=== PATIENT | male | born 1995 | race Caucasian/White ===

== ENCOUNTER 2017-01-29 16:46 | Inpatient (IN) | payer BC, OTHER ==
[~2017-01-29] VITALS: Ht 175.3 cm; Wt 67.1 kg
[2017-01-29 19:20] VITALS: BP 144/80
--- NOTE | 2017-01-29 19:20 | NUR ---
Pre-Assessment Pre-assessment performed in the intake department of [facility]. Pt is accompanied by his father. He is A&O x4 and ambulatory with a steady gait. Pt does not appear intoxicated and answers all questions appropriately. Vitals are B/P 144/80, HR, 95, RR 18, O2 sat 100%, T 97.9, back pain 11/09 r/t broken back 11/2015. He is 5'9" and weighs 148lb. He reports NKA. Pt reports that he is here to be treated for ETOH abuse. He last drank vodka 01/28/17 at 1400. [facility].
[2017-01-29] MEDS ORDERED: MIRALAX 17 GM POWD.PACK PO PRN (19:45)
[2017-01-29] MEDS ORDERED: ACETAMINOPHEN 325 MG TABLET PO PRN (19:45)
[2017-01-29] MEDS ORDERED: ONDANSETRON 4 MG/2 ML VIAL IM PRN (19:45)
[2017-01-29] MEDS ORDERED: THIAMINE HCL 200 MG/2 ML VIAL IM ONE (19:45)
[2017-01-29] MEDS ORDERED: MAG HYDROX/AL HYDROX/SIMETH 30 ML LIQUID UDC PO PRN (19:45)
[2017-01-29] MEDS ORDERED: LOPERAMIDE HCL 2 MG CAPSULE PO PRN ×2 (19:45)
[2017-01-29] MEDS ORDERED: LORAZEPAM 2 MG/1 ML VIAL IM PRN (19:45)
[2017-01-29] MEDS ORDERED: ONDANSETRON ODT 4 MG TAB.RAPDIS SL PRN (19:45)
[2017-01-29] MEDS ORDERED: DICYCLOMINE HCL 20 MG TABLET PO PRN (19:45)
[2017-01-29] MEDS ORDERED: IBUPROFEN 400 MG TABLET PO PRN (19:45)
[2017-01-29] MEDS ORDERED: diphenhydrAMINE 50 MG CAPSULE PO PRN (19:45)
[2017-01-29] MEDS ORDERED: MAGNESIUM HYDROXIDE 30 ML LIQUID UDC PO PRN (19:45)
[2017-01-29] MEDS ORDERED: LORAZEPAM 1 MG TABLET PO PRN (19:45)
[2017-01-29] MEDS ORDERED: CLONIDINE HCL 0.1 MG TABLET PO PRN (19:45)
[2017-01-29 20:30] VITALS: BP 142/92
[2017-01-29] MEDS: LORAZEPAM 1 MG TABLET PO PRN (20:42)
--- NOTE | 2017-01-29 20:45 | NUR ---
PRN Ativan Pt appears tense and reports feeling anxious. His face is flushed, pupils are dilated, with mild hand tremors. CIWA 8. PRN Ativan administered.
[2017-01-29] MEDS ORDERED: DULO30CA2 PO (20:46)
[2017-01-29] MEDS ORDERED: ZOLP10TA6 PO (20:46)
[2017-01-29] MEDS ORDERED: HYDR-3026 PO (20:46)
[2017-01-29] MEDS ORDERED: FLUO-119 PO (20:46)
[2017-01-29] MEDS ORDERED: [UNRECOGNIZED DRUG - CODE] TP (20:46)
[2017-01-29] MEDS ORDERED: DOXY25TA PO (20:46)
[2017-01-29] MEDS ORDERED: LISD40CA2 PO (20:46)
[2017-01-29 20:50] LABS: BASOPHILS # (AUTO) 0.1 K/uL (0.0-8.0); BASOPHILS % (AUTO) 1.1 % (0.0-2.0); EOSINOPHILS # (AUTO) 0.1 K/uL (0.0-0.7); HEMATOCRIT 43.2 % (40-50); HEMOGLOBIN 15.3 G/DL (14.0-18.0); LYMPHOCYTES # (AUTO) 1.3 K/UL (0.8-4.8); LYMPHOCYTES % (AUTO) 27.1 % (20.5-74.5); MEAN CORPUSCULAR HEMOGLOBIN 35.5 UUG (27.0-31.0); MEAN CORPUSCULAR HGB CONC 36 g/dL (32.0-37.0); MEAN CORPUSCULAR VOLUME 100.1 FL (82.0-92.0); MONOCYTES # (AUTO) 0.6 K/UL (0.1-1.30); MONOCYTES % (AUTO) 12.6 % (0-11); NEUTROPHILS # (AUTO) 2.5 K/UL (1.8-8.9); NEUTROPHILS % (AUTO) 56.2 % (31.5-64.5); PLATELET COUNT (AUTO) 181 K/UL (150-450); RED BLOOD CELL COUNT(AUTO) 4.32 MIL/UL (4.7-6.1); WHITE BLOOD COUNT (AUTO) 4.6 K/UL (4.0-11.2)
[2017-01-29] MEDS ORDERED: [UNRECOGNIZED DRUG - CODE] PO (20:50)
[2017-01-29 21:13] LABS: ETHANOL < 3 MG/DL (0-0)
[2017-01-29 21:17] LABS: ALKALINE PHOSPHATASE 94 U/L (50-136); AMYLASE 97 U/L (25-115); ASPARTATE AMINOTRANSFERASE 160 U/L (15-37); BILIRUBIN,TOTAL 0.9 mg/dL (0.2-1.0); CARBON DIOXIDE 27 mmol/L (21-32); CHLORIDE 100 mmol/L (98-107); CREATININE 0.8 mg/dL (0.6-1.3); GLUCOSE 134 mg/dL (74-106); LIPASE 105 U/L (73-393); MAGNESIUM 1.7 mg/dL (1.8-2.4); POTASSIUM 3.9 mmol/L (3.5-5.1); TOTAL PROTEIN, SERUM 7.4 g/dL (6.4-8.2); UREA NITROGEN, BLOOD 18 mg/dL (7-18)
[2017-01-29 21:26] LABS: ALANINE AMINOTRANSFERASE 239 U/L (16-63)
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
[2017-01-29 21:45] VITALS: BP 141/86
--- NOTE | 2017-01-29 21:45 | NUR ---
PRN Ativan reassessment PRN Ativan somewhat effective. He continues to feel mildly anxious and unable to relax to fall asleep. CIWA 5
[2017-01-29 21:48] LABS: *AMPHETAMINE, URINE NEGATIVE (NEGATIVE); *BARBITURATE, URINE NEGATIVE (NEGATIVE); *CANNABINOID, URINE POSITIVE (NEGATIVE); *COCCAINE, URINE NEGATIVE (NEGATIVE); *OPIATE, URINE NEGATIVE (NEGATIVE); *PHENCYCLIDINE SCREEN,URINE NEGATIVE (NEGATIVE)
[2017-01-29] MEDS: HYDROXYZINE PAMOATE 25 MG CAPSULE PO PRN (21:51)
--- NOTE | 2017-01-29 21:52 | NUR ---
PRN Motrin and Vistaril Pt reports feeling anxious and unable to relax and fall asleep. CIWA 5. He reports chronic back pain 02/09. PRN Motrin and Vistaril administered.
[2017-01-29] MEDS ORDERED: MAGNESIUM OXIDE 400 MG TABLET PO ONE (22:15)
--- NOTE | 2017-01-29 22:52 | NUR ---
PRN Motrin and Vistaril reassessment PRN Motrin and Vistaril effective. Pt is lying comfortably in bed resting with eyes closed. Respirations even and unlabored. Safety measures in place.
[2017-01-30] VITALS: BP 114/65
[2017-01-30 04:00] VITALS: BP 127/83
--- NOTE | 2017-01-30 07:00 | NUR ---
END OF SHIFT Report provided to day shift nurse. Pt is lying in bed resting. He is a 21 yo male admitted to [facility] on 01/29 for ETOH dependence. He is A&O x4 and ambulatory. NKA, full code, regular diet. Last CIWA 4. PRN Ativan, Motrin, and Vistaril administered. He drank 500 mL and slept 6 hours.
[2017-01-30] MEDS: LORAZEPAM 1 MG TABLET PO PRN (07:14)
--- NOTE | 2017-01-30 07:15 | NUR ---
START OF SHIFT NOTE: Received report from shift supervisor rn nurse. Pt is a 21 yo male admitted 01-29-17 for ETOH dependence. Pt is currently on prn meds only. Pt c/o anxiety, tremors, sweating. CIWA 8. Ativan 1mg po prn given. Pt is alert and oriented X4. Color good, skin moist. Respirations even and unlabored. Resting in bed. Safety precautions observed. Call light within reach. Will continue to monitor.
[2017-01-30 08:10] VITALS: BP 143/87
--- NOTE | 2017-01-30 08:15 | NUR ---
Pt states anxiety has lessened after Ativan prn. CIWA 5
[2017-01-30] MEDS ORDERED: TUBERCULIN,PURIF.PROT.DERIV. 5 TU/0.1 ML TEST ID ONE (09:00)
[2017-01-30] MEDS: FOLIC ACID 1 MG TABLET PO SCH (09:43)
[2017-01-30] MEDS: MULTIVITAMINS,THERAPEUTIC TABLET PO SCH (09:43)
[2017-01-30] MEDS: THIAMINE HCL 100 MG TABLET PO SCH (09:43)
--- NOTE | 2017-01-30 12:20 | NUR ---
Therapist introduced himself to client and encouraged client to attend daily groups at 11am and 3:30pm. Client stated that he is willing to attend.
[2017-01-30 12:47] VITALS: BP 147/100
[2017-01-30] MEDS ORDERED: LORAZEPAM 1 MG TABLET PO PRN ×2 (13:00)
--- NOTE | 2017-01-30 14:00 | NUR ---
Pt states "I feel good." Attending group activities.
[2017-01-30 17:04] VITALS: BP 146/98
[2017-01-30] MEDS: DULOXETINE 30 MG CAPSULE.DR PO SCH (17:15)
--- NOTE | 2017-01-30 17:18 | NUR ---
Dr. Suazo here to eveluate pt. Pt placed on Cymbalta
--- NOTE | 2017-01-30 18:47 | NUR ---
END OF SHIFT NOTE: Report given to overnight caregiver nurse. Pt is a 21 yo male admitted 01-29-17 for ETOH dependence. Pt is currently on prn meds only. Pt is alert and oriented X4. Color good, skin moist. Respirations even and unlabored. Ativan 1mg po prn given @ 0715. Vital signs have remained stable throughout shift. Last CIWA @ 1700. Safety precautions observed. Call light within reach.
[2017-01-30 20:00] VITALS: BP 92/71
--- NOTE | 2017-01-30 20:05 | NUR ---
START OF SHIFT Received report from day shift nurse. Pt attended a group meeting and returned to his room after. He is a 21 yo male admitted to [facility] on 01/29 for ETOH withdrawal. He is A&O x4 and ambulatory. NKA, full code status, and on a regular diet. He has a PMH of asthma not currently treated, broken back 11/2015, tonsillitis, anxiety, depression, OCD, ADHD, panic attacks, and insomnia. On admission he admitted to drinking vodka "6-7 shots" per day for 4 weeks and marijuana rarely. He reports "my anxiety is okay right now". He is observed to have mild hand tremors, dilated pupils, and flushed face. PRN medications available for management of withdrawal symptoms. Fall precautions in place. Bed is down with call light in reach.
[2017-01-30] MEDS: TRAZODONE 50 MG TABLET PO PRN (21:43)
[2017-01-30] MEDS: HYDROXYZINE PAMOATE 25 MG CAPSULE PO PRN (21:44)
--- NOTE | 2017-01-30 21:45 | NUR ---
PRN Vistaril and Trazodone Pt reports mild anxiety and inability to sleep. He is noted with mild tremors, dilated pupils, and flushed skin. PRN Vistaril and Trazodone administered.
--- NOTE | 2017-01-30 22:45 | NUR ---
PRN Vistaril and Trazodone reassessment PRN Vistaril and Trazodone effective. Pt is lying comfortably in bed resting with eyes closed. Respirations even and unlabored. Safety measure in place.
[2017-01-31] VITALS: BP 114/58
[2017-01-31 04:00] VITALS: BP 127/82
--- NOTE | 2017-01-31 07:18 | NUR ---
END OF SHIFT Report provided to day shift nurse. Pt is lying in bed resting. He is a 21 yo male admitted to [facility] on 01/29 for ETOH withdrawal. He is A&O x4 and ambulatory. NKA, full code status, and on a regular diet. He has a PMH of asthma not currently treated, broken back 11/2015, tonsillitis, anxiety, depression, OCD, ADHD, panic attacks, and insomnia. Upon admission he reported drinking vodka "6-7 shots" per day for 4 weeks and marijuana rarely. PRN medications ordered for the management of withdrawal symptoms. Last CIWA was 3. PRN Vistaril and Trazodone administered. He drank 795mL and slept for 7 hours. Fall precautions in place. Bed is down with call light in reach.
[2017-01-31 08:00] VITALS: BP 120/73
--- NOTE | 2017-01-31 08:00 | NUR ---
START OF SHIFT Pt 21 y/o male admitted for etoh withdrawal. Pt received in room with eyes closed resting, but easily arousable to name. Pt alert and oriented to name, place, and time. Perrla. Skin warm and dry to touch. Respirations even and unlabored. It was reported that pt slept for 7 hours last night. Bed on lowest position with side rails x2 up for safety. Call light within reach. No distress noted at this time.
[2017-01-31 08:01] LABS: CREATININE 0.8 mg/dL (0.6-1.3); MAGNESIUM 2.2 mg/dL (1.8-2.4); POTASSIUM 4.5 mmol/L (3.5-5.1)
[2017-01-31 08:06] LABS: HEPATITIS B SURFACE AG Negative (Negative)
[2017-01-31] MEDS: MULTIVITAMINS,THERAPEUTIC TABLET PO SCH (08:17)
[2017-01-31] MEDS: FOLIC ACID 1 MG TABLET PO SCH (08:17)
[2017-01-31] MEDS: GABAPENTIN 300 MG CAPSULE PO SCH ×2 (08:17→14:49)
[2017-01-31] MEDS: THIAMINE HCL 100 MG TABLET PO SCH (08:17)
[2017-01-31] MEDS: DULOXETINE 30 MG CAPSULE.DR PO SCH (08:18)
--- NOTE | 2017-01-31 10:07 | NUR ---
Therapist spoke with client about attending daily group psychotherapy. Client had a positive attitude and expressed that he was willing to attend and would attend the 11am and 3:30pm groups today.
[2017-01-31 12:00] VITALS: BP 134/84
[2017-01-31 13:14] LABS: *AMPHETAMINE, URINE NEGATIVE (NEGATIVE); *BARBITURATE, URINE NEGATIVE (NEGATIVE); *CANNABINOID, URINE NEGATIVE (NEGATIVE); *COCCAINE, URINE NEGATIVE (NEGATIVE); *OPIATE, URINE NEGATIVE (NEGATIVE); *PHENCYCLIDINE SCREEN,URINE NEGATIVE (NEGATIVE)
[2017-01-31] MEDS ORDERED: PNEUMOCOCCAL 23-VAL P-SAC VAC 0.5 ML VIAL IM ONE (15:00)
[2017-01-31 16:00] VITALS: BP 130/84
--- NOTE | 2017-01-31 18:04 | NUR ---
END OF SHIFT Pt 21 y/o male admitted for etoh withdrawal. Pt alert and oriented to name, place, and time. Perrla. Skin warm and dry to touch. Respirations even and unlabored. Bilateral hand tremors noted slightly. Pt observed mostly in dining room throughout the day. Pt attended group activity. Pt medication compliant and tolerated well. No ASE noted. Bed on lowest position [facility] side rails x2up for safety. Call light within reach. Pt is scheduled to be discharged tommorrow.
--- NOTE | 2017-01-31 19:11 | NUR ---
Start of shift note Received report from day shift nurse. Pt is a 21 yo male, A+Ox4, presenting to [facility] for ETOH/Marijuana dependence. Pt has NKA, is Full Code status, and on Regular diet. Pt is on Fall precautions. Pt has HX of Broken back, Asthma, Tonsillitis, Anxiety, Depression, ADHD, panic attacks, and insomnia. Pt is on PRN medications for observation and is due for discharge tomorrow. No s/s of distress noted at this time. Respirations even and unlabored. Will continue to monitor.
[2017-01-31 20:15] VITALS: BP 125/73
[2017-01-31] MEDS ORDERED: GABAPENTIN 300 MG CAPSULE PO SCH (21:00)
[2017-01-31] MEDS: TRAZODONE 50 MG TABLET PO PRN (21:51)
--- NOTE | 2017-01-31 21:51 | NUR ---
PRN Trazodone Pt c/o inability to sleep and requested for PRN Trazodone. Medication given and tolerated well. Will reassess within 1 HR. Will continue to monitor.
--- NOTE | 2017-01-31 22:45 | NUR ---
PRN Trazodone Reassessment Medication effective. Pt is resting well in bed. No s/s of ASE/distress noted at this time. Respirations even and unlabored. Will continue to monitor.
[2017-01-31] MEDS ORDERED: GABA-534 PO (22:55)
[2017-01-31] MEDS ORDERED: HYDR-3895 PO (22:55)
[2017-02-01 00:11] VITALS: BP 116/60
[2017-02-01 04:15] VITALS: BP 130/87
--- NOTE | 2017-02-01 06:48 | NUR ---
End of shift note Pt is a 21 yo male, A+Ox4, presenting to [facility] for ETOH/Marijuana dependence. Pt has NKA, is Full Code status, and on Regular diet. Pt is on Fall precautions. Pt has HX of Broken back, Asthma, Tonsillitis, Anxiety, Depression, ADHD, panic attacks, and insomnia. Pt is on PRN medications for observation and is due for discharge today. Pt was given PRN Trazodone @2151. Pt slept for a total of 8 HRS. Last CIWA: 0 @0400. No s/s of distress noted at this time. Respirations even and unlabored. Will endorse to day shift nurse.
--- NOTE | 2017-02-01 07:15 | NUR ---
Start of shift note SBAR report rcv'd. Pt was admitted for ETOH dependence and marijuana abuse. Pt has a PMHx of a broken back in 2016, asthma, tonsillitis, anxiety, depression, ADHD, panic attacks and insomnia. Pt have no s/s of withdrawal at this time and states that he feels ready for discharge. Pt has no further complaints at this time. Will continue to monitor pt. All needs addressed at this time.
[2017-02-01 08:00] VITALS: BP 132/80
[2017-02-01] MEDS: MULTIVITAMINS,THERAPEUTIC TABLET PO SCH (08:29)
[2017-02-01] MEDS: DULOXETINE 30 MG CAPSULE.DR PO SCH (08:29)
[2017-02-01] MEDS: GABAPENTIN 300 MG CAPSULE PO SCH (08:29)
[2017-02-01] MEDS: THIAMINE HCL 100 MG TABLET PO SCH (08:29)
[2017-02-01] MEDS: FOLIC ACID 1 MG TABLET PO SCH (08:29)
--- NOTE | 2017-02-01 10:00 | NUR ---
Discharge note Pt was admitted for ETOH dependence. Pt has a recent CIWA of 0, VS are WNL, LBM 02/01/17, denies SI/HI. Pt states that he feels ready for discharge, pt states that he has a plan on how he will maintain a sober lifestyle. Pt verbalized his understanding of the discharge instructions. All needs addressed at this time. Pt prescriptions, discharge packet and all belongings returned to pt. Pt ID band removed, pt ambulated off of unit with [employer], left facility via [facility] for [facility].
[2017-02-01] MEDS ORDERED: PNEUMOCOCCAL 23-VAL P-SAC VAC 0.5 ML VIAL IM ONE (15:00)
== END 2017-02-01 10:00 | disposition other institution (70) | DRG 895 ==
LOC: SRC 18:36
PROVIDERS: ADMIT Internal Medicine; ATTEND Internal Medicine
PROC: HZ2ZZZZ Detoxification Services for Substance Abuse Treatment (ICD-10-PCS; principal; 2017-01-29)
PROC: HZ41ZZZ Group Counseling for Substance Abuse Treatment, Behavioral (ICD-10-PCS; 2017-01-30)
PROC: HZ31ZZZ Individual Counseling for Substance Abuse Treatment, Behavioral (ICD-10-PCS; 2017-01-31)
DX: F10.230 Alcohol dependence with withdrawal, uncomplicated (principal); F32.1 Major depressive disorder, single episode, moderate; Y90.9 Presence of alcohol in blood, level not specified; Z98.1 Arthrodesis status; E83.42 Hypomagnesemia; F41.0 Panic disorder [episodic paroxysmal anxiety]; Z81.1 Family history of alcohol abuse and dependence; F17.210 Nicotine dependence, cigarettes, uncomplicated
CPT/HCPCS: 36415; 70030-TC; 71010; 80307; 80349; 83690; 83735; 84443; 85025; 86580; 86592; 86705; 86803; 87340; 87806; 90732; G0480; J3411